=== PATIENT | male | born 1995 | race African-American/Black ===

== ENCOUNTER 2018-09-29 19:22 | Emergency (ER) | payer BC, OTHER ==
[2018-09-29 19:44] VITALS: BMI 34.9
[2018-09-29] MEDS ORDERED: ACETAMINOPHEN 500 MG TABLET (FP) PO ONE (21:22)
[2018-09-29] MEDS ORDERED: ACETAMINOPHEN 500 MG TABLET (FP) ONE (21:23)
--- NOTE | 2018-09-29 21:25 | PDOC ---
History of Present Illness - General Chief Complaint: Pain Stated Complaint: L EYE SWOLLEN Time Seen by Provider: 09/29/18 21:18 - History of Present Illness Initial Comments: 09/29/18 21:22 22-year-old male without comorbidities presents for evaluation of left periorbital pain after being need while playing football earlier today. He does complain of a slight headache. There is no post injury nausea vomiting or loss of consciousness. + blurry vision 09/29/18 21:23 Past History - Past Medical History Allergies/Adverse Reactions: Allergies Allergy/AdvReac Type Severity Reaction Status Date / Time No Known Allergies Allergy Verified 09/29/18 19:43 Home Medications: Ambulatory Orders NK [No Known Home Medication] 09/29/18 COPD: No Other medical history: denies - Immunization History Immunization Up to Date: Yes - Suicide/Smoking/Psychosocial Hx Smoking History: Never smoked Information on smoking cessation initiated: No Hx Alcohol Use: No Drug/Substance Use Hx: No Review of Systems - Review of Systems HEENTM: Yes: See HPI, Blurred Vision. No: Eye Pain, Tearing, Recent change in vision, Double Vision Neurological: Yes: Headache *Physical Exam - Vital Signs Last Vital Signs Temp Pulse Resp BP Pulse Ox 98.8 F 55 L 20 125/61 99 09/29/18 19:40 09/29/18 19:40 09/29/18 19:40 09/29/18 19:40 09/29/18 19:40 - Physical Exam Comments: 09/29/18 21:24 HEAD: NC/AT EYES: Conjuntiva clear; PERRL EOMI without pain, Lids swollen shut and need to be manually opened, no pily orbital or nasal tenderness Ears: Canals and TM's normal NOSE: No d/c THROAT: Moist mucous membrances, oral pharanx clear, uvula midline NECK: Supple without adenopathy CARDIAC: S1 S2 LUNGS: CTA Full and Equal breath sounds ABDOMEN: Soft NT ND MS: Full ROM in all joints without edema NEUROLOGIC: No gross sensory or motor deficits, NVID SKIN: Normal color and temperature no lesions or rashes Moderate Sedation - Procedure Monitoring Vital Signs: Procedure Monitoring Vital Signs Temperature 98.8 F 09/29/18 19:40 Pulse Rate 55 L 09/29/18 19:40 Respiratory Rate 20 09/29/18 19:40 Blood Pressure 125/61 09/29/18 19:40 O2 Sat by Pulse Oximetry (%) 99 09/29/18 19:40 ED Treatment Course - RADIOLOGY Radiology Studies Ordered: Category Date Time Status FACIAL BONES CT W/O CONTRAST [CT] Stat CT Scan 09/29/18 21:[address] WITHOUT CONTRAST [CT] Stat CT Scan 09/29/18 21:22 Ordered Medical Decision Making - Medical Decision Making 09/29/18 22:[address] pending, blow out fx of L orbit on head CT signed out patient to main ER for transfer to higher level of care peding CT results *DC/Admit/Observation/Transfer Diagnosis at time of Disposition: Blow out fracture of orbit - Referrals - Patient Instructions - Post Discharge Activity
[2018-09-29] MEDS ORDERED: oxyCODONE HCL 5 MG TABLET PO ONE (22:57)
--- NOTE | 2018-09-29 23:18 | PDOC ---
*Physical Exam - Vital Signs Last Vital Signs Temp Pulse Resp BP Pulse Ox 98.8 F 55 L 20 125/61 99 09/29/18 19:40 09/29/18 19:40 09/29/18 19:40 09/29/18 19:40 09/29/18 19:40 - Physical Exam HEENT: positive: Other (Left upper orbit swollen. Patient is able to open eye without difficulty. Instructed movements are intact. Visual acuity right eye 20/ 20. Left eye 20/40. Both eyes 20/40) ED Treatment Course - Medications Given in the ED: ED Medications Discontinued Medications Generic Name Dose Route Start Last Admin Trade Name Freq PRN Reason Stop Dose Admin Acetaminophen 1,000 mg 09/29/18 21:22 09/29/18 21:25 Tylenol - PO 09/29/18 21:23 1,000 mg ONCE ONE Administration Medical Decision Making - Medical Decision Making 09/29/18 23:16 Received patient from RAEGAN Gunn. Briefly this is a 22-year-old male who was struck in the face with a knee while playing football sustaining a left states medial wall blowout fracture with entrapment of the left medial rectus muscle. No additional orbital fracture is identified. Case is been discussed with Dr. Villarreal at [facility] who accepts the patient for transfer from ED to ED for facial trauma service. *DC/Admit/Observation/Transfer Diagnosis at time of Disposition: Blow out fracture of orbit - Discharge Dispostion Disposition: TRANSFER ACUTE CARE/OTHER HOSP Condition at time of disposition: Fair - Referrals - Patient Instructions - Post Discharge Activity - Transfer to Acute Care Facility Receiving Facility: [facility]. Accepting Physician:: Cherelle Transfer comment: 09/29/18 23:17 Patient was accepted at 2310 hrs.
[2018-09-29] MEDS ORDERED: oxyCODONE HCL 5 MG TABLET ONE (23:32)
[2018-09-30 01:12] VITALS: BP 123/63; PULSE 58; TEMP 97.9
== END 2018-09-29 23:55 | disposition short-term general hospital (02) ==
LOC: JER 19:22 → JERFT 19:22 → JER 23:55
DX: S02.32XA Fracture of orbital floor, left side, initial encounter for closed fracture (principal); W50.0XXA Accidental hit or strike by another person, initial encounter; Y93.61 Activity, american tackle football; Y92.321 Football field as the place of occurrence of the external cause; Y99.8 Other external cause status
CPT/HCPCS: 70450-TC; 70486-TC; 99283-25